=== PATIENT | male | born 1990 | race African-American/Black ===

== ENCOUNTER 2018-06-20 18:20 | Emergency (ER) | payer OTHER ==
--- NOTE | 2018-06-20 20:02 | ED Physician Documentation ---
PD HPI LOWER EXT INJURY - Stated complaint Stated Complaint: LF LEG INJURY - Chief complaint Chief Complaint: Trauma Ext - History obtained from History obtained from: Patient - History of Present Illness PD HPI LOW EXT INJURY LOCATION: Left, Thigh (posteriorly) Type of injury: Twist (he was playing football and was intercepting a ball, then was running and trying to stay inbounds, so twisting his running stance, and felt onset of pull/pop feeling and pain left posterior thigh. Hurts with knee flexion and walking. Hard to bear full weight.) Where injury occurred: Other (playing field) Timing - onset: How many hours ago (1-2), Today Timing - duration: Hours Timing - details: Abrupt onset, Still present Worsened by: Moving, Palpating, Other (weight bearing and step off on gait) Associated symptoms: No: Weakness, Numbness Contributing factors: No: Prior ortho surgery Similar symptoms before: Has not had sx before Recently seen: Not recently seen Review of Systems Constitutional: denies: Fever Nose: denies: Rhinorrhea / runny nose, Congestion Throat: denies: Sore throat Respiratory: denies: Cough GI: denies: Vomiting, Diarrhea Skin: denies: Abrasion (s), Laceration (s) Neurologic: denies: Focal weakness, Numbness PD PAST MEDICAL HISTORY - Past Medical History Past Medical History: No Neuro: None - Past Surgical History Past Surgical History: No - Present Medications Home Medications: Ambulatory Orders Medication Instructions Recorded Confirmed Ibuprofen [Motrin] 600 mg PO TID #30 tab 06/20/18 Methocarbamol [Robaxin] 500 mg PO Q6H PRN #25 tablet 06/20/18 - Allergies Allergies/Adverse Reactions: Allergies Allergy/AdvReac Type Severity Reaction Status Date / Time nickel AdvReac Rash Verified 06/20/18 18:26 - Social History Does the pt smoke?: No Smoking Status: Never smoker Does the pt drink ETOH?: No Does the pt have substance abuse?: No - Immunizations Immunizations are current?: Yes PD ED PE NORMAL - Vitals Vital signs reviewed: Yes - General General: Alert and oriented X 3, Well developed/nourished - Back Back: No spinal TTP - Derm Derm: Normal color, Warm and dry - Extremities Extremities: Other (left posterior thigh mid to higher, with muscle tenderness. Not tender at lower thigh/hamstring tendons area. Knee not tender and no effusion. ) - Neuro Neuro: No motor deficit, No sensory deficit Results - Vitals Vitals: Vital Signs - 24 hr 06/20/18 06/20/18 18:24 21:06 Temperature 36.3 C L Heart Rate 98 80 Respiratory 17 18 Rate Blood Pressure 125/87 H 120/84 H O2 Saturation 100 99 Oxygen O2 Source Room air - Rads (name of study) left femur Radiology: Prelim report reviewed, EMP read contemporaneously (no fractures nor osseous abnormality) PD MEDICAL DECISION MAKING - ED course Complexity details: considered differential (muscle strain but not tendon rupture. Presume consueravtive threatment, likely 2-4 weeks for fully improvement. ), d/w patient Departure - Departure Disposition: 01 Home, Self Care Clinical Impression: Strain of muscle, fascia and tendon of the posterior muscle group at thigh level, left thigh, initial encounter Condition: Stable Record reviewed to determine appropriate education?: Yes Instructions: ED Strain Muscle Ext Follow-Up: SUYAPA Rios [Provider Group] Prescriptions: Ibuprofen [Motrin] 600 mg PO TID #30 tab Methocarbamol [Robaxin] 500 mg PO Q6H PRN #25 tablet PRN Reason: Spasms Comments: Use crutches for partial to no weightbearing as needed for comfort. Ibuprofen 3 times a day. Robaxin muscle relaxant for spasms and stiffness of the muscle. Add Tylenol if needed for pain. Limited walking and duty for the next several days. Recheck with your primary care in the next few days to see how well you are progressing. This may take 2-3 weeks or so to heal up if you have a partial muscle tear. Forms: Activity restrictions Discharge Date/Time: 06/20/18 21:13
[2018-06-20] MEDS ORDERED: IBUPROFEN 600 MG TABLET PO STA (20:22)
[2018-06-20] MEDS ORDERED: traMADol 50 MG TABLET PO STA (20:23)
[2018-06-20 21:07] VITALS: BP 120/84
--- NOTE | 2018-06-20 21:10 | XRAY Report ---
Reason: posterior pain while running Procedure Date: 06/20/2018 Accession Number: [id number] / [id number] Procedure: XR - Femur 2V LT CPT Code: FULL RESULT: EXAM: LEFT FEMUR RADIOGRAPHY EXAM DATE: 06/20/2018 08:50 PM. CLINICAL HISTORY: Posterior pain while running. COMPARISON: None. TECHNIQUE: 2 views. FINDINGS: Bones: Normal. No fracture or bone lesion. Joints: The visualized hip and knee joints are normal. No effusions. Soft Tissues: Normal. No soft tissue swelling. IMPRESSION: Normal femur radiography. [facility]
== END 2018-06-20 21:13 | disposition home or self-care (01) ==
LOC: ED 18:20
DX: S76.312A Strain of muscle, fascia and tendon of the posterior muscle group at thigh level, left thigh, initial encounter (principal); X50.1XXA Overexertion from prolonged static or awkward postures, initial encounter; Y93.61 Activity, american tackle football
CPT/HCPCS: 73552; 99283; A9270